=== PATIENT | male | born 1990 | race African-American/Black ===

== ENCOUNTER 2017-04-19 11:44 | Emergency (ER) | payer MEDICAID ==
[~2017-04-19] VITALS: Ht 182.9 cm; Wt 91.0 kg
[~2017-04-19 11:44] MED LIST: DIPH25CA83 PO; HYDR-523 PO
[2017-04-19 12:20] VITALS: BP 134/81
[2017-04-19] MEDS: IBUPROFEN 600MG TABLET PO ONE (12:20)
== END 2017-04-19 12:32 | disposition home or self-care (01) ==
LOC: ER 12:30
DX: S86.001A Unspecified injury of right Achilles tendon, initial encounter (principal); F17.200 Nicotine dependence, unspecified, uncomplicated; W01.0XXA Fall on same level from slipping, tripping and stumbling without subsequent striking against object, initial encounter; Y93.01 Activity, walking, marching and hiking; Y92.89 Other specified places as the place of occurrence of the external cause; Y99.8 Other external cause status
CPT/HCPCS: 99282